=== PATIENT | male | born 1960 | race African-American/Black ===

== ENCOUNTER 2017-11-12 04:44 | Emergency (ER) | payer MEDICARE, OTHER | END 2017-11-12 06:02 | disposition home or self-care (01) | LOC: ER 04:44 | DX: K64.4 Residual hemorrhoidal skin tags (principal); I11.0 Hypertensive heart disease with heart failure; I50.9 Heart failure, unspecified; E11.9 Type 2 diabetes mellitus without complications; Z86.718 Personal history of other venous thrombosis and embolism; Z91.011 Allergy to milk products | CPT/HCPCS: 99282 ==